=== PATIENT | male | born 1955 | race Hispanic/Latino ===

== ENCOUNTER 2019-08-05 11:15 | Outpatient (CLI) | payer MEDICARE ==
--- NOTE | 2019-08-05 12:07 | RAD ---
Exam: Chest 2 views HISTORY:Cough Comparison: None FINDINGS: Lungs: Bilateral interstitial opacities Cardiac silhouette:Enlarged cardiac silhouette Pulmonary vessels: Mild central prominence Pleural Spaces: Clear Pneumothorax: None Osseous abnormalities: None of acuity. IMPRESSION: Interstitial opacities with prominent cardiac silhouette and pulmonary vasculature. Findi ngs may relate to CHF, or fluid overload. Correlate clinically, and as necessary, imaging follow-up may be obtained.
== END 2019-08-05 11:16 | disposition home or self-care (01) ==
LOC: BICRAD 11:15
PROVIDERS: ATTEND Family Medicine
DX: R05 Cough (principal); R91.8 Other nonspecific abnormal finding of lung field
CPT/HCPCS: 71046